=== PATIENT | female | born 2000 | race Caucasian/White ===

== ENCOUNTER 2021-05-15 23:19 | Emergency (ER) | payer SELFPAY ==
[~2021-05-15] VITALS: Ht 168 cm; Wt 68.0 kg
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
[2021-05-15] MEDS ORDERED: VANCOMYCIN INJECTION 750 MG in NS (IVPB) 100 ML IV ONE (23:45)
[2021-05-15] MEDS ORDERED: LACTATED RINGERS 1,000 ML IV ONE ×2 (23:45)
[2021-05-15] MEDS ORDERED: CEFEPIME INJECTION 1,000 MG in WATER (STERILE) FOR INJECTION 10 ML IV ONE (23:45)
[2021-05-15] MEDS ORDERED: NS (IVPB) 250 ML ONE (23:58)
[2021-05-16] MEDS ORDERED: VANCOMYCIN INJECTION 500 MG in NS (IVPB) 100 ML IV ONE (00:45)
[2021-05-16 01:00] VITALS: BP 92/71
== END 2021-05-16 01:00 | disposition left against medical advice (07) ==
LOC: ER 23:24
DX: A41.9 Sepsis, unspecified organism (principal); R07.9 Chest pain, unspecified; R00.0 Tachycardia, unspecified; Z20.822 Contact with and (suspected) exposure to COVID-19
CPT/HCPCS: 87040; 87077; 87636; 93005

== ENCOUNTER 2021-05-17 10:52 | Emergency (ER) | payer SELFPAY ==
[~2021-05-17] VITALS: Ht 167 cm; Wt 68.0 kg
[2021-05-17] MEDS ORDERED: KETOROLAC 30 MG/ML VIAL IVP ONE (11:15)
--- NOTE | 2021-05-17 11:15 | ED General ---
General Chief Complaint: General Problems/Pain Stated Complaint: SEPSIS Nursing Triage Note: TO ED PER EMS FROM HOME TEXTED THE DEPT THAT SHE NEEDED HELP. WAS SEEN IN ED YESTERDAY AND DX WITH SEPSIS LEFT AMA BECAUSE SHE DID NOT LIKE BEING STUCK. ON ADMIT C/O SORE THROAT AND BODY ACHE. TEXT NET FOR COVID YESTEDAY ADMIT TO DRINKING EVERY DAY AND DRUG USE. Source of Information: Patient Exam Limitations: No Limitations History of Present Illness Date Seen by Provider: May 17, 2021 Time Seen by Provider: 11:12 Initial Comments To ER by EMS with reports of fever body aches sore throat chest pain cough for about a week. She was seen here last night tested negative for influenza and n egative for Covid. She is an IV drug user, uses methamphetamine, benzodiazepines, opiates and heroin. She states her most recent use was 3 days ago. She has untreated hepatitis C. She reports fevers at home but has not actually measured them. Was here last night but left AGAINST MEDICAL ADVICE as they were unable to get IV access on her. Timing/Duration: 1 Week Severity: Moderate Associated Systoms: Cough, Malaise Allergies and Home Medications Allergies Coded Allergies: No Known Drug Allergies (Unverified , 05/15/21) Patient Home Medication List Home Medication List Reviewed: Yes Review of Systems Review of Systems Constitutional: see HPI, chills, malaise, weakness EENTM: see HPI Respiratory: see HPI, cough Cardiovascular: see HPI, chest pain Genitourinary: no symptoms reported Musculoskeletal: no symptoms reported Skin: no symptoms reported Psychiatric/Neurological: No Symptoms Reported Hematologic/Lymphatic: No Symptoms Reported Immunological/Allergic: no symptoms reported Physical Exam Vital Signs Vital Signs - First Documented 05/17/21 05/17/21 10:52 11:38 Temp 36.1 Pulse 114 Resp 20 B/P (MAP) 111/66 (81) Pulse Ox 92 O2 Delivery Room Air Capillary Refill : Less Than 3 Seconds Height, Weight, BMI Height: '" Weight: lbs. oz. kg; 24.00 BMI Method: General Appearance: No Apparent Distress, WD/WN, Chronically ill (Respirations are shallow with a rate of 35. Tachycardic at 1 1695% SPO2 on room air. Blood pressure soft at 102/66. She was cursing and unpleasant on arrival. Able to establish IV access left brachial vein with ultrasound guidance 20-gauge needle.) HEENT: PERRL/EOMI, TMs Normal Neck: Full Range of Motion, Normal Inspection Respiratory: No Accessory Muscle Use, No Respiratory Distress Cardiovascular: Regular Rate, Rhythm, Normal Peripheral Pulses Gastrointestinal: Normal Bowel Sounds, Non Tender, Soft Extremity: Normal Capillary Refill, Normal Inspection Neurologic/Psychiatric: Alert, Oriented x3 Skin: Normal Color, Warm/Dry, Other (Multiple sores on arms and legs) Focused Exam Lactate Level 05/17/21 12:50: Lactic Acid Level 1.82 Lactic Acid Level Laboratory Tests Test 05/17/21 12:50 Lactic Acid Level 1.82 MMOL/L (0.50-2.00) Procedures/Interventions Lumen: triple Position: internal jugular (R) Anesthesia: Lidocaine Volume Anesthetic (ccs): 5 Complications: none Post Position: sutured, good blood return, position confirmed w/ CXR Progress/Results/Core Measures Suspected Sepsis SIRS Temperature: Pulse: 114 Respiratory Rate: 20 Laboratory Tests 05/17/21 11:05: White Blood Count 42.3*H Blood Pressure 111 /66 Mean: 81 05/17/21 12:50: Lactic Acid Level 1.82 Laboratory Tests 05/17/21 11:05: Creatinine 4.93H, INR Comment 1.2, Platelet Count 183, Total Bilirubin 0.4 Results/Orders Lab Results Laboratory Tests Test 05/17/21 11:05 05/17/21 12:10 05/17/21 12:50 Range/Units White Blood Count 42.3 *H 4.3-11.0 10^3/uL Red Blood Count 4.94 3.80-5.11 10^6/uL Hemoglobin 14.8 11.5-16.0 g/dL Hematocrit 43 35-52 % Mean Corpuscular Volume 87 80-99 fL Mean Corpuscular Hemoglobin 30 25-34 pg Mean Corpuscular Hemoglobin Concent 34 32-36 g/dL Red Cell Distribution Width 14.4 10.0-14.5 % Platelet Count 183 130-400 10^3/uL Mean Platelet Volume 11.4 9.0-12.2 fL Immature Granulocyte % (Auto) 5 % Neutrophils (%) (Auto) 86 H 42-75 % Lymphocytes (%) (Auto) 7 L 12-44 % Monocytes (%) (Auto) 2 0-12 % Eosinophils (%) (Auto) 1 0-10 % Basophils (%) (Auto) 0 0-10 % Neutrophils # (Auto) 36.4 H 1.8-7.8 10^3/uL Lymphocytes # (Auto) 2.8 1.0-4.0 10^3/uL Monocytes # (Auto) 0.8 0.0-1.0 10^3/uL Eosinophils # (Auto) 0.3 0.0-0.3 10^3/uL Basophils # (Auto) 0.0 0.0-0.1 10^3/uL Immature Granulocyte # (Auto) 2.0 H 0.0-0.1 10^3/uL Neutrophils % (Manual) 73 % Lymphocytes % (Manual) 8 % Monocytes % (Manual) 2 % Eosinophils % (Manual) 0 % Basophils % (Manual) 0 % Band Neutrophils 17 % Blood Morphology Comment NORMAL Erythrocyte Sedimentation Rate 8 0-20 MM/HR Prothrombin Time 15.4 H 12.2-14.7 SEC INR Comment 1.2 0.8-1.4 Activated Partial Thromboplast Time 39 H 24-35 SEC Fibrinogen > 1200 H 221-496 MG/DL D-Dimer 2.18 H 0.00-0.49 UG/ML Sodium Level 129 L 135-145 MMOL/L Potassium Level 3.7 3.6-5.0 MMOL/L Chloride Level 92 L 98-107 MMOL/L Carbon Dioxide Level 14 L 21-32 MMOL/L Anion Gap 23 H 5-14 MMOL/L Blood Urea Nitrogen 106 *H 7-18 MG/DL Creatinine 4.93 H 0.60-1.30 MG/DL Estimat Glomerular Filtration Rate 11 BUN/Creatinine Ratio 22 Glucose Level 105 70-105 MG/DL Calcium Level 9.8 8.5-10.1 MG/DL Corrected Calcium 10.7 H 8.5-10.1 MG/DL Total Bilirubin 0.4 0.1-1.0 MG/DL Aspartate Amino Transf (AST/SGOT) 33 5-34 U/L Alanine Aminotransferase (ALT/SGPT) 66 H 0-55 U/L Alkaline Phosphatase 211 H 40-136 U/L C-Reactive Protein High Sensitivity 51.50 H 0.00-0.50 MG/DL Total Protein 7.8 6.4-8.2 GM/DL Albumin 2.9 L 3.2-4.5 GM/DL Serum Test, Qualitative NEGATIVE NEGATIVE Serum Alcohol < 10 <10 MG/DL Urine Color YELLOW Urine Clarity SL CLOUDY Urine pH 6.0 5-9 Urine Specific [place] 1.015 L 1.016-1.022 Urine Protein 1+ H NEGATIVE Urine Glucose (UA) NEGATIVE NEGATIVE Urine Ketones NEGATIVE NEGATIVE Urine Nitrite NEGATIVE NEGATIVE Urine Bilirubin NEGATIVE NEGATIVE Urine Urobilinogen 0.2 < = 1.0 MG/DL Urine Leukocyte Esterase TRACE H NEGATIVE Urine RBC (Auto) NEGATIVE NEGATIVE Urine RBC NONE /HPF Urine WBC 25-50 H /HPF Urine Squamous Epithelial Cells 0-2 /HPF Urine Crystals NONE /LPF Urine Bacteria FEW H /HPF Urine Casts NONE /LPF Urine Mucus NEGATIVE /LPF Urine Culture Indicated CULTURE PENDING Urine Opiates Screen POSITIVE H NEGATIVE Urine Oxycodone Screen NEGATIVE NEGATIVE Urine Methadone Screen NEGATIVE NEGATIVE Urine Propoxyphene Screen NEGATIVE NEGATIVE Urine Barbiturates Screen NEGATIVE NEGATIVE Ur Tricyclic Antidepressants Screen NEGATIVE NEGATIVE Urine Phencyclidine Screen NEGATIVE NEGATIVE Urine Amphetamines Screen POSITIVE H NEGATIVE Urine Methamphetamines Screen POSITIVE H NEGATIVE Urine Benzodiazepines Screen NEGATIVE NEGATIVE Urine Cocaine Screen NEGATIVE NEGATIVE Urine Cannabinoids Screen NEGATIVE NEGATIVE Arterial Blood pH 7.31 *L 7.37-7.43 Lactic Acid Level 1.82 0.50-2.00 MMOL/L Micro Results Microbiology 05/17/21 Blood Culture - Final, Complete Staphylococcus aureus See Comments 05/17/21 Urine Culture - Final, Complete NO GROWTH 05/17/21 Blood Culture - Final, Complete Staphylococcus aureus My Orders Orders - TUNG VELAZQUEZ STAGE ELECTRICIAN HELPER Cbc With Automated Diff (05/17/21 11:10) Comprehensive Metabolic Panel (05/17/21 11:10) Blood Culture (05/17/21 11:10) Urinalysis (05/17/21 11:10) Urine Culture (05/17/21 11:10) Protime With Inr (05/17/21 11:10) Partial Thromboplastin Time (05/17/21 11:10) Chest 1 View, Ap/Pa Only (05/17/21 11:10) Ed Iv/Invasive Line Start (05/17/21 11:10) Ed Iv/Invasive Line Start (05/17/21 11:10) Vital Signs Adult Sepsis Patie Q15M (05/17/21 11:10) O2 (05/17/21 11:10) Remove Rings In Anticipation O (05/17/21 11:10) Lactic Acid Analyzer (05/17/21 11:10) Lactated Ringers (Lr 1000 Ml Iv Solution (05/17/21 11:15) Ketorolac Injection (Toradol Injection) (05/17/21 11:15) Alcohol (05/17/21 11:10) Drug Screen Stat (Urine) (05/17/21 11:10) Erythrocyte Sedimentation Rate (05/17/21 11:10) Hs C Reactive Protein (05/17/21 11:10) Echo W Doppler/Color Flow (05/17/21 11:10) Hcg,Qualitative Serum (05/17/21 11:10) Fibrin Degradation Products (05/17/21 11:10) Manual Differential (05/17/21 11:05) Fibrinogen (05/17/21 11:45) Abg Ph (05/17/21 11:47) Vancomycin Injection (Vancomycin Injecti (05/17/21 12:00) Cefepime Injection (Maxipime Injection) (05/17/21 12:00) General/Regular (05/17/21 Lunch) Chest 1 View, Ap/Pa Only (05/17/21 13:01) Norepinephrine 8 Mg/250 Ml (Norepinephri (05/17/21 13:15) Medications Given in ED Vital Signs/I&O 05/17/21 05/17/21 05/17/21 05/17/21 10:52 11:38 12:43 14:19 Temp 36.1 Pulse 114 112 114 110 Resp 20 16 18 20 B/P (MAP) 111/66 (81) 97/56 96/51 96/51 Pulse Ox 92 97 O2 Delivery Room Air Room Air 05/17/21 05/17/21 05/17/21 05/17/21 15:42 16:17 17:03 18:17 Temp 37.0 Pulse 105 103 106 113 Resp 18 18 18 B/P (MAP) 103/43 96/38 117/73 Pulse Ox 98 94 O2 Delivery Room Air Room Air Room Air Capillary Refill : Less Than 3 Seconds Blood Pressure Mean: 81 Departure Communication (Admissions) 1311-blood pressure is at 94/43. That gives us a MAP of 58. Heart rate is 110. She is receiving her second liter of IV fluids. If this fails to raise the map will initiate Levophed. I did just place a right internal jugular central line. Prior to this he had ultrasound come over for an echocardiogram which shows structurally normal valves without evidence of vegetations. 1343-I spoke with Dr. Fuentes from [facility]. They do have an ICU bed available and have accepted her to ICU. They will call us back with a bed. Currently her second liter fluid bolus is infusing. None blood pressure 95/38 MAP 62 heart rate 112 respiratory rate 28 oxygen 96% room air. Not currently on pressors. Patient is transferred as we do not have nephrology here. 1438-Pt and family now refuse [facility] because "theyve had several family members there" 1537-[facility] declined. [facility] has since given that bed away. [facility] determining if they have bed capacity now. NAME: TEE FREY MED REC#: [id number] PT STATUS: REG ER : 2000 PHYSICIAN: TUNG VELAZQUEZ APRN ADMIT DATE: 05/17/21/ER Draft Date of Exam:05/17/21 CHEST 1 VIEW, AP/PA ONLY CLINICAL INDICATION: Patient complained of sore throat and body ache. Patient diagnosed with sepsis in the emergency room yesterday. EXAM: Portable chest x-ray, upright view. COMPARISONS: None. FINDINGS: Lungs/pleura: There are multiple patchy areas of infiltrate or consolidation seen throughout both lungs, most pronounced in the periphery of the right upper lung field region. There is no pneumothorax. There is no pleural effusion. Mediastinum: Unremarkable. Pulmonary vasculature: Unremarkable. Heart: Unremarkable. Bones/extrathoracic soft tissue: Unremarkable. IMPRESSION: Bilateral lung pneumonia. Dictated on workstation # [id number] Dict: 05/17/21 1153 Trans: 05/17/21 1156 [id number] Interpreted by: GAYATHRI SEGAL MD Electronically signed by: Impression Primary Impression: Severe sepsis Additional Impressions: Pneumonia Renal failure Disposition: XF SHT-TRM HOSP Condition: Stable Transfer Transfer Reason: Exceeds level of care Time Spoke to Accepting Phy: 13:44 Departure-Patient Inst. Referrals: NO,LOCAL PHYSICIAN (PCP/Family) Primary Care Physician TUNG VELAZQUEZ APRN May 17, 2021 11:15
[2021-05-17 11:22] LABS: BASOPHILS % (AUTO) 0 % (0-10); EOSINOPHILS # (AUTO) 0.3 10^3/uL (0.0-0.3); EOSINOPHILS % (AUTO) 1 % (0-10); HEMATOCRIT 43 % (35-52); HEMOGLOBIN 14.8 g/dL (11.5-16.0); LYMPHOCYTES # (AUTO) 2.8 10^3/uL (1.0-4.0); LYMPHOCYTES % (AUTO) 7 % (12-44); MEAN CORPUSCULAR HEMOGLOBIN 30 pg (25-34); MEAN CORPUSCULAR HGB CONC 34 g/dL (32-36); MEAN CORPUSCULAR VOLUME 87 fL (80-99); MEAN PLATELET VOLUME 11.4 fL (9.0-12.2); MONOCYTES # (AUTO) 0.8 10^3/uL (0.0-1.0); MONOCYTES % (AUTO) 2 % (0-12); NEUTROPHILS # (AUTO) 36.4 10^3/uL (1.8-7.8); NEUTROPHILS % (AUTO) 86 % (42-75); PLATELET COUNT 183 10^3/uL (130-400)
[2021-05-17] MEDS: LACTATED RINGERS IV PRN ×2 (11:22→11:35)
[2021-05-17 11:25] LABS: WHITE BLOOD COUNT 42.3 10^3/uL (4.3-11.0)
[2021-05-17 11:27] LABS: ALBUMIN 2.9 GM/DL (3.2-4.5); CHLORIDE 92 MMOL/L (98-107); POTASSIUM 3.7 MMOL/L (3.6-5.0); SODIUM 129 MMOL/L (135-145)
[2021-05-17 11:28] LABS: CALCIUM 9.8 MG/DL (8.5-10.1)
[2021-05-17 11:29] LABS: GLUCOSE 105 MG/DL (70-105); TOTAL PROTEIN 7.8 GM/DL (6.4-8.2)
[2021-05-17 11:30] LABS: CARBON DIOXIDE 14 MMOL/L (21-32)
[2021-05-17 11:31] LABS: BILIRUBIN,TOTAL 0.4 MG/DL (0.1-1.0); FIBRIN DEGRADATION PRODUCTS 2.18 UG/ML (0.00-0.49); INR 1.2 (0.8-1.4); PROTHROMBIN TIME PATIENT 15.4 SEC (12.2-14.7)
[2021-05-17 11:32] LABS: ALKALINE PHOSPHATASE 211 U/L (40-136)
[2021-05-17 11:33] LABS: CREATININE SERUM 4.93 MG/DL (0.60-1.30); GFR ESTIMATED 11
[2021-05-17 11:34] LABS: BUN/CREATININE RATIO 22
[2021-05-17 11:36] LABS: ALANINE AMINOTRANSFERASE 66 U/L (0-55)
[2021-05-17 11:57] LABS: BAND NEUTROPHILS 17 %; BASOPHILS % (MANUAL) 0 %; EOSINOPHILS % (MANUAL) 0 %; ERYTHROCYTE SEDIMENTATION RATE 8 MM/HR (0-20); LYMPHOCYTES % (MANUAL) 8 %; MONOCYTES % (MANUAL) 2 %; NEUTROPHILS % (MANUAL) 73 %; RBC MORPH NORMAL
--- NOTE | 2021-05-17 11:57 | Diagnostic Imaging Report ---
CLINICAL INDICATION: Patient complained of sore throat and body ache. Patient diagnosed with sepsis in the emergency room yesterday. EXAM: Portable chest x-ray, upright view. COMPARISONS: None. FINDINGS: Lungs/pleura: There are multiple patchy areas of infiltrate or consolidation seen throughout both lungs, most pronounced in the periphery of the right upper lung field region. There is no pneumothorax. There is no pleural effusion. Mediastinum: Unremarkable. Pulmonary vasculature: Unremarkable. Heart: Unremarkable. Bones/extrathoracic soft tissue: Unremarkable. IMPRESSION: Bilateral lung pneumonia. Dictated by: Dictated on workstation # [id number]
[2021-05-17] MEDS ORDERED: VANCOMYCIN INJECTION 1,000 MG in NS (IVPB) 250 ML IV SCH (12:00)
[2021-05-17] MEDS ORDERED: CEFEPIME INJECTION 1,000 MG in WATER (STERILE) FOR INJECTION 10 ML IV ONE (12:00)
[2021-05-17 12:29] LABS: BILIRUBIN,URINE NEGATIVE (NEGATIVE); CLARITY,URINE SL CLOUDY; COLOR,URINE YELLOW; GLUCOSE, URINE (UA) NEGATIVE (NEGATIVE); KETONES,URINE NEGATIVE (NEGATIVE); LEUKOCYTE ESTERASE ,URINE TRACE (NEGATIVE); NITRITE,URINE NEGATIVE (NEGATIVE); PROTEIN,URINE 1+ (NEGATIVE)
[2021-05-17 12:39] LABS: BACTERIA,URINE FEW /HPF; SQUAMOUS EPITHELIAL CELL,UR 0-2 /HPF; WBC,URINE 25-50 /HPF
[2021-05-17 12:43] LABS: AMPHETAMINE SCREEN, URINE POSITIVE (NEGATIVE); BARBITURATE SCREEN URINE NEGATIVE (NEGATIVE); BENZODIAZEPINES SCREEN URINE NEGATIVE (NEGATIVE); CANNABINOID SCREEN, URINE NEGATIVE (NEGATIVE); COCAINE SCREEN URINE NEGATIVE (NEGATIVE); METHADONE STAT NEGATIVE (NEGATIVE); METHAMPHETAMINE SCREEN URINE S POSITIVE (NEGATIVE); OPIATE SCREEN URINE POSITIVE (NEGATIVE); OXYCODONE STAT NEGATIVE (NEGATIVE); PROPOXYPHENE STAT NEGATIVE (NEGATIVE); TRICYCLIC ANTIDEPRESSANTS SCRE NEGATIVE (NEGATIVE)
[2021-05-17] MEDS ORDERED: NOREPINEPHRINE 8 MG/250 ML 250 ML IV SCH (13:15)
--- NOTE | 2021-05-17 13:37 | Diagnostic Imaging Report ---
INDICATION: Central line placement. EXAMINATION: Chest, 05/17/2021. COMPARISON: 05/17/2021 at 11:43 a.m. FINDINGS: There has been interval placement of a right-sided jugular line with the tip in the mid SVC. No pneumothorax. The remaining chest is stable with persistent diffuse bilateral infiltrates noted. Heart and pulmonary vasculature are unremarkable. IMPRESSION: 1. Right jugular line with the tip in the SVC. 2. Diffuse bilateral infiltrates. Dictated by: Dictated on workstation # [id number]
[2021-05-17 16:17] VITALS: BP 96/38
== END 2021-05-17 18:11 | disposition short-term general hospital (02) ==
LOC: ER 10:52 → EDUNIT# 10:55 → ER 18:11
DX: J18.9 Pneumonia, unspecified organism (principal); R65.21 Severe sepsis with septic shock; N19 Unspecified kidney failure; Z20.822 Contact with and (suspected) exposure to COVID-19
CPT/HCPCS: 51702; 71045; 80053; 80306; 81000; 82800; 83605; 84703; 85007; 85027; 85379; 85384; 85610; 85652; 85730; 86141; 87040; 87088; 93306; 99284; G0480; 36415; 80320; 87077

== ENCOUNTER 2021-11-18 22:33 | Emergency (ER) | payer MEDICAID ==
[~2021-11-18] VITALS: Ht 165.1 cm; Wt 74.9 kg
[2021-11-18 22:42] VITALS: BP 152/112
[2021-11-18] MEDS ORDERED: KETO10TA PO (23:13)
[2021-11-18] MEDS ORDERED: AMOX1TAB12 PO (23:13)
[2021-11-18] MEDS ORDERED: LIDO20SO23 MM (23:13)
--- NOTE | 2021-11-18 23:14 | ED EENT ---
History of Present Illness General Chief Complaint: Dental Problems/Pain Stated Complaint: DENTAL PAIN Nursing Triage Note: Pt arrival to ER with complaint of Dental Pain on the Bottom Left x1 week. Pt states that she hasn't been able to get into the dentist and now the jaw is swollen. Pt states that she is worried that she has an abscess. Pt rates pain at a 4/10. Pt states that she has broken teeth. Source: patient History of Present Illness Date Seen by Provider: Nov 18, 2021 Time Seen by Provider: 22:55 Initial Comments PT ARRIVES VIA POV FROM HOME C/O DENTAL PAIN AND JAW SWELLING STATES HER TOOTH BROKE OFF A COUPLE OF MONTHS AGO--LEFT LOWER MOLAR HAS BEEN HAVING PAIN TO THE AREA X 1 WEEK, AND SWELLING BEGAN 2 DAYS AGO NO FEVER HAS NOT ATTEMPTED TO CONTACT A DENTIST AT ANY TIME. STATES SHE DOES NOT HAVE A DENTIST. PT [facility] AT [facility], BUT HAS NEVER BEEN TO THE DENTAL CLINIC THERE--STATES SHE NEVER GOES TO THE MEDICAL CLINIC THERE EITHER. PCP: [facility] Allergies and Home Medications Allergies Coded Allergies: No Known Drug Allergies (Unverified , 05/15/21) Patient Home Medication List Home Medication List Reviewed: Yes Amoxicillin/Potassium Clav (Amox Tr-K Clv 875-125 mg Tab) 875 Mg-125 Mg Tablet, 1 EACH PO BID Prescribed by: MANAV SMITH on 11/18/212312 Ketorolac Tromethamine (Ketorolac Tromethamine) 10 Mg Tablet, 10 MG PO Q6H Prescribed by: MANAV SMITH on 11/18/212312 Lidocaine HCl (Lidocaine HCl Viscous) 2 % Solution, 1-2 ML MM [id number] Prescribed by: MANAV SMITH on 11/18/212312 Review of Systems Review of Systems Constitutional: no symptoms reported Mouth: see HPI Throat: no symptoms reported Respiratory: no symptoms reported Cardiovascular: no symptoms reported Musculoskeletal: no symptoms reported Skin: no symptoms reported Neurological: No Symptoms Reported Past Govhodc-Emqqzy-Xjegnx Hx Patient Social History Tobacco Use?: Yes Tobacco type used: Cigarettes Smoking Status: Current Everyday Smoker Use of E-Cig and/or Vaping dev: No Substance use?: Yes Substance type: Amphetamines, Methamphetamine, Opiates/Opioids, Misuse of prescript meds, Marijuana Substance frequency: Daily Alcohol Use?: Yes Alcohol Frequency: Couple times a week Pt feels they are or have been: No Immunizations Up To Date Influenza Vaccine Up-to-Date: Yes; Up-to-Date Past Medical History Surgeries: No Respiratory: No Cardiac: Yes (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--DOES NOT SEE STUFFED CASING TIER) Endocarditis Neurological: No Genitourinary: No Gastrointestinal: Yes (UNTREATED HEPATITIS C) Hepatitis Musculoskeletal: No Endocrine: No HEENT: No Cancer: No Psychosocial: No Integumentary: No Blood Disorders: No Family Medical History SOCIAL HISTORY: -SMOKES 1 PPD -ETOH--CLAIMS OCCASIONAL USE -DRUGS--EXTENSIVE HISTORY OF IV DRUG USE INCLUDING HEROIN AND METHAMPHETAMINES, BENZODIAZEPINES AND OPIATES Physical Exam Vital Signs Vital Signs - First Documented 11/18/21 22:42 Temp 36.1 Pulse 89 Resp 16 B/P (MAP) 152/112 (125) Pulse Ox 100 O2 Delivery Room Air Height, Weight, BMI Height: '" Weight: lbs. oz. kg; 27.00 BMI Method: General Appearance: WD/WN, no apparent distress, other (DOES NOT APPEAR TO BE IN ANY DISCOMFORT OR DISTRESS. SITTING IN CHAIR WITH ONE LEG FLUNG OVER THE ARM OF CHAIR, SWINGING IT. TALKING ON SPEAKER PHONE OF HER CELL PHONE. ) Eyes: bilateral eye normal inspection Ears: bilateral ear TM normal Nose: normal inspection Mouth/Throat: dental tenderness, mandibular swelling; No trismus; other (LEFT LOWER 3RD MOLAR WITH CARIES AND PIECE OF TOOTH BROKEN OFF. MILD SWELLING AND ERYTHEMA TO ADJACENT. MILD SWELLING TO LEFT MANDIBLE. 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 PT HAS A BRAND ON HER RIGHT FOREARM, AND A TATTOO ABOVE HER BUTTOCKS THAT READS "FUCK THE POLICE" ) Progress/Results/Core Measures Results/Orders My Orders Orders - MANVA SMITH DO Ceftriaxone (Rocephin) (11/18/21 23:15) Lidocaine 1% Inj 20 Ml (Xylocaine 1% Inj (11/18/21 23:15) Ketorolac Injection (Toradol Injection) (11/18/21 23:15) Lidocaine 2% Viscous 15 Ml (Xylocaine Vi (11/18/21 23:15) Medications Given in ED Current Medications Medications Dose Ordered Sig/Bhanu Route Start Time Stop Time Status Last Admin Dose Admin Ceftriaxone Sodium 1,000 mg ONCE ONCE IM 11/18/21 23:15 11/18/21 23:16 DC 11/18/21 23:21 1,000 MG Ketorolac Tromethamine 60 mg ONCE ONCE IM 11/18/21 23:15 11/18/21 23:16 DC 11/18/21 23:21 60 MG Lidocaine HCl 2.1 ml ONCE ONCE INJ 11/18/21 23:15 11/18/21 23:16 DC 11/18/21 23:21 2.1 ML Lidocaine HCl 5 ml ONCE ONCE MM 11/18/21 23:15 11/18/21 23:16 DC 11/18/21 23:21 5 ML Vital Signs/I&O 11/18/21 22:42 Temp 36.1 Pulse 89 Resp 16 B/P (MAP) 152/112 (125) Pulse Ox 100 O2 Delivery Room Air Blood Pressure Mean: 125 Progress Progress Note : Progress Note STRESSED THE IMPORTANCE OF TAKING ALL OF THE ANTIBIOTICS AND FOLLOWING UP WITH DENTIST PABLO Departure Impression Primary Impression: Dental abscess Disposition: 01 HOME, SELF-CARE Condition: Stable Departure-Patient Inst. Decision time for Depature: 23:10 Referrals: [facility] [place] Patient Instructions: Tooth Abscess (DC) Add. Discharge Instructions: FREQUENT [employer]ISHES FOLLOW UP WITH DENTIST SOON POSSIBLE--CALL IN THE MORNING TO SCHEDULE APPOINTMENT All discharge instructions reviewed with patient and/or family. Voiced understanding. Scripts Ketorolac Tromethamine (Ketorolac Tromethamine) 10 Mg Tablet 10 MG PO Q6H for Pain, #15 TAB Prov: MANAV SMITH DO 11/18/21 Lidocaine HCl (Lidocaine HCl Viscous) 2 % Solution 1-2 ML MM [id number], #120 ML Prov: MANAV SMITH DO 11/18/21 Amoxicillin/Potassium Clav (Amox Tr-K Clv 875-125 mg Tab) 875 Mg-125 Mg Tablet 1 EACH PO BID for 15 Days, #30 TAB Prov: MANAV SMITH DO 11/18/21 MANAV SMITH DO Nov 18, 2021 23:13
[2021-11-18] MEDS ORDERED: KETOROLAC 60 MG/2 ML VIAL IM ONE (23:15)
[2021-11-18] MEDS ORDERED: LIDOCAINE 1% INJ 20 ML VIAL INJ ONE (23:15)
[2021-11-18] MEDS ORDERED: LIDOCAINE 2% VISCOUS 15 ML UDC MM ONE (23:15)
[2021-11-18] MEDS ORDERED: cefTRIAXone 1,000 MG VIAL IM ONE (23:15)
== END 2021-11-18 23:27 | disposition home or self-care (01) ==
LOC: EDUNIT# 22:33 → ER 22:34
DX: K04.7 Periapical abscess without sinus (principal); F17.210 Nicotine dependence, cigarettes, uncomplicated
CPT/HCPCS: 99284